=== PATIENT | male | born 1985 | race Caucasian/White ===

== ENCOUNTER 2018-11-26 16:13 | Emergency (ER) | payer MEDICAID ==
[~2018-11-26] VITALS: Ht 177.8 cm; Wt 77.1 kg
[2018-11-26 16:26] VITALS: Ht 177.8 cm; Wt 77.1 kg
[2018-11-26 18:33] VITALS: BP 137/87
== END 2018-11-26 18:33 | disposition home or self-care (01) ==
LOC: ED 16:13
DX: F41.9 Anxiety disorder, unspecified (principal); F10.239 Alcohol dependence with withdrawal, unspecified